=== PATIENT | female | born 2000 | race Two or more races ===

== ENCOUNTER → 2025-03-29 | Emergency (ER) | payer OTHER ==
[~2025-03-29] VITALS: Ht 162.6 cm; Wt 88.5 kg
[~2025-03-29] MED LIST: DEXAMETHASONE SODIUM PHOSPHATE 4 MG/ML VIAL IM ONE; KETOROLAC TROMETHAMINE 60 MG VIAL IM ONE
== END | disposition left against medical advice (07) ==
LOC: ER 16:27
DX: S99.821A Other specified injuries of right foot, initial encounter (principal); W18.39XA Other fall on same level, initial encounter; Y93.89 Activity, other specified; Y92.89 Other specified places as the place of occurrence of the external cause